=== PATIENT | female | born 1960 | race Caucasian/White ===

== ENCOUNTER 2019-07-03 09:40 | Day surgery (SDC) | payer BC ==
[2019-07-01 14:33] LABS: Urine Bacteria NONE SEEN /hpf (None Seen); Urine Blood Negative /uL (Negative); Urine Mucus FEW (None Seen); Urine Specific Gravity 1.014 (1.001-1.035); Urine WBC 31 /hpf (0 - 5)
[2019-07-01 15:15] LABS: Basophils # (auto) 0 uL; Basophils % (auto) 0.6 % (0.0-2.0); Eosinophils # (auto) 0 uL; Eosinophils % (auto) 1.2 % (0.0-7.0); Hematocrit 42.5 % (36.0-46.0); Hemoglobin 13.8 g/dL (12.2-16.2); Lymphocytes # (auto) 0.5 uL; Lymphocytes % (auto) 14.6 % (10.0-50.0); Mean Corpuscular Hemoglobin 28.7 pg (28.0-32.0); Mean Corpuscular Hgb Conc. 32.5 g/dL (32.0-36.0); Mean Corpuscular Volume 88.3 fL (80.0-100.0); Monocytes # (auto) 0.2 uL; Monocytes % (auto) 4.7 % (0.0-12.0); Neutrophils # (auto) 2.8 uL; Neutrophils % (auto) 78.9 % (37.0-80.0); Nucleated Red Blood Cells % 0.1 %; Platelet Count (auto) 119 10^3/uL (140-450); Red Blood Cells 4.81 10^6/uL (4.0-5.20); Red Cell Distribution Width 14.4 % (11.8-14.3); White Blood Cell 3.5 10^3/uL (4.4-10.8)
[2019-07-01 15:30] LABS: Albumin 3.8 g/dL (3.4-5.0); BUN/Creatinine Ratio 14.7; Calcium 9.1 mg/dL (8.5-10.1); Potassium 3.6 mmol/L (3.5-5.1)
[2019-07-01 15:31] LABS: Bilirubin, Total 0.4 mg/dL (0.2-1.0); Total Protein 7.9 g/dL (6.4-8.2)
[2019-07-01 15:34] LABS: INR 1.01 (0.9-1.15); Partial Thromboplastin Time 27.2 sec (23.64-32.05)
[~2019-07-03] VITALS: Ht 165.1 cm; Wt 99.8 kg
[2019-07-03] MEDS ORDERED: fentaNYL CITRATE 100 MCG/2 ML VL ONE (12:07)
[2019-07-03] MEDS ORDERED: MEPERIDINE HCL (25 MG/ML) 1ML VIAL ONE (12:07)
[2019-07-03] MEDS ORDERED: MIDAZOLAM HCL 1MG/1ML-2 ML VIAL ONE (12:07)
[2019-07-03] MEDS ORDERED: ceFAZolin 1GM/50ML 50 ML IV ONE (12:08)
[2019-07-03] MEDS ORDERED: LIDOCAINE 1% HCL (LOCAL ANESTH.) INJ 20ML MDV ONE (12:40)
[2019-07-03] MEDS ORDERED: PROPOFOL 10 MG/ML 20 ML IV ONE (13:18)
[2019-07-03] MEDS ORDERED: SUCCINYLCHOLINE CHLORIDE 20 MG/ML 10ML VIAL IV ONE (13:18)
[2019-07-03] MEDS ORDERED: METOCLOPRAMIDE HCL 5MG/ml INJ 2ml VIAL IV ONE (13:18)
[2019-07-03] MEDS ORDERED: DexAMETHasone SOD PHOS 10MG/1ML VIAL INJ ONE (13:46)
[2019-07-03] MEDS ORDERED: ONDANSETRON HCL 4 MG/2 ML VIAL ONE (14:05)
[2019-07-03] MEDS ORDERED: ACETAMINOPHEN/CODEINE#3 (300/30mg) TAB PO PRN (15:00)
[2019-07-03] MEDS ORDERED: KETOROLAC TROMETH 30 MG/ML 1ML VIAL ONE (15:25)
[2019-07-03] MEDS ORDERED: KETOROLAC TROMETH 15 mg/ml 1ML VL IV ONE (15:30)
[2019-07-03 15:42] VITALS: BP 142/87
[2019-08-12] MEDS ORDERED: NAP500T PO (10:08)
[2019-08-12] MEDS ORDERED: ERGO1CAP23 PO (10:08)
== END 2019-07-03 15:55 | disposition home or self-care (01) ==
LOC: SUR 09:40
PROVIDERS: ATTEND Surgery
DX: C50.611 Malignant neoplasm of axillary tail of right female breast (principal); E66.01 Morbid (severe) obesity due to excess calories; F17.210 Nicotine dependence, cigarettes, uncomplicated; Z68.36 Body mass index [BMI] 36.0-36.9, adult; Z17.0 Estrogen receptor positive status [ER+]; Z98.890 Other specified postprocedural states; Z90.89 Acquired absence of other organs; Z98.84 Bariatric surgery status
CPT/HCPCS: 19301; 36415; 38525; 80053; 81001; 85025; 85610; 85730; 88305; 88307; 88342; 88367; J0330; J0690; J1100; J1885; J2001; J2175; J2250; J2405; J2704; J2765; J3010

== ENCOUNTER → 2019-07-03 | Outpatient (CLI) | payer BC, OTHER ==
[~2019-07-03] VITALS: Ht 30.5 cm; Wt 0.5 kg
[~2019-07-03] MED LIST: HYDROmorphone HCL 2 MG/ML VL IV PRN; LABETALOL HCL 5 MG/ML 4ML SYRINGE IV PRN; MIDAZOLAM HCL 1MG/1ML-2 ML VIAL IV PRN; MORPHINE SULFATE 4 MG/ML SYR/VIAL IV PRN; ONDANSETRON HCL 4 MG/2 ML VIAL IV PRN; ePHEDrine SULFATE 50 MG/ML AMP IV PRN
== END | disposition home or self-care (01) ==
LOC: XY 09:59
PROVIDERS: ATTEND Surgery
DX: C50.911 Malignant neoplasm of unspecified site of right female breast (principal)
CPT/HCPCS: 78195; A9541; J2250; J3490

== ENCOUNTER 2019-08-14 08:24 | Day surgery (SDC) | payer BC ==
[2019-08-12 09:57] LABS: Basophils # (auto) 0 10 ^3/uL (0-0.2); Basophils % (auto) 0.5 % (0.0-2.0); Eosinophils # (auto) 0.1 10 ^3/uL (0-0.8); Eosinophils % (auto) 3.8 % (0.0-7.0); Hemoglobin 14.2 g/dL (12.2-16.2); Lymphocytes % (auto) 26.2 % (10.0-50.0); Mean Corpuscular Hemoglobin 28.7 pg (28.0-32.0); Mean Corpuscular Hgb Conc. 32.3 g/dL (32.0-36.0); Mean Corpuscular Volume 88.8 fL (80.0-100.0); Monocytes # (auto) 0.2 10 ^3/uL (0-1.3); Monocytes % (auto) 6.3 % (0.0-12.0); Neutrophils # (auto) 2.3 10 ^3/uL (1.6-8.6); Neutrophils % (auto) 63.2 % (37.0-80.0); Nucleated Red Blood Cells % 0.1 %; Platelet Count (auto) 131 10^3/uL (140-450); Red Blood Cells 4.96 10^6/uL (4.0-5.20); Red Cell Distribution Width 15.2 % (11.8-14.3); White Blood Cell 3.7 10^3/uL (4.4-10.8)
[2019-08-12 10:12] LABS: Urine Bacteria FEW /hpf (None Seen); Urine Blood Negative /uL (Negative); Urine Mucus FEW (None Seen); Urine WBC 11 /hpf (0 - 5)
[2019-08-12 10:24] LABS: Calcium 9.1 mg/dL (8.5-10.1); Potassium 3.8 mmol/L (3.5-5.1)
[2019-08-12 10:26] LABS: Partial Thromboplastin Time 26.8 sec (23.64-32.05)
[2019-08-12 10:31] LABS: Albumin 3.8 g/dL (3.4-5.0); BUN/Creatinine Ratio 14.3; Bilirubin, Total 0.4 mg/dL (0.2-1.0); Total Protein 7.9 g/dL (6.4-8.2)
[~2019-08-14] VITALS: Ht 165.1 cm; Wt 99.8 kg
[~2019-08-14 08:24] MED LIST changes: +ERGO1CAP23 PO; -HYDROmorphone HCL 2 MG/ML VL IV PRN; -LABETALOL HCL 5 MG/ML 4ML SYRINGE IV PRN; -MIDAZOLAM HCL 1MG/1ML-2 ML VIAL IV PRN; -MORPHINE SULFATE 4 MG/ML SYR/VIAL IV PRN; +NAP500T PO; -ONDANSETRON HCL 4 MG/2 ML VIAL IV PRN; -ePHEDrine SULFATE 50 MG/ML AMP IV PRN
[2019-08-14] MEDS ORDERED: ceFAZolin 1GM/50ML 50 ML IV ONE (08:58)
[2019-08-14] MEDS ORDERED: PROPOFOL 10 MG/ML 20 ML IV ONE (10:47)
[2019-08-14] MEDS ORDERED: ROCURONIUM 10MG/ML 10ML VIAL IV ONE (10:47)
[2019-08-14] MEDS ORDERED: MIDAZOLAM HCL 1MG/1ML-2 ML VIAL ONE (10:47)
[2019-08-14] MEDS ORDERED: ONDANSETRON HCL 4 MG/2 ML VIAL ONE (10:47)
[2019-08-14] MEDS ORDERED: SODIUM CHLORIDE LOCK 10 ML ONE (10:47)
[2019-08-14] MEDS ORDERED: MEPERIDINE HCL (25 MG/ML) 1ML VIAL ONE ×2 (10:47→14:35)
[2019-08-14] MEDS ORDERED: fentaNYL CITRATE 100 MCG/2 ML VL ONE ×2 (10:47→11:02)
[2019-08-14] MEDS ORDERED: fentaNYL CITRATE 100 MCG/2 ML VL IV PRN (14:00)
[2019-08-14] MEDS ORDERED: ONDANSETRON HCL 4 MG/2 ML VIAL IV PRN (14:00)
[2019-08-14] MEDS ORDERED: MORPHINE SULFATE 4 MG/ML SYR/VIAL IV PRN (14:00)
[2019-08-14] MEDS ORDERED: HYDROmorphone HCL 2 MG/ML VL IV PRN (14:00)
[2019-08-14] MEDS ORDERED: POVIDONE IODINE 10 % TOPICAL OINT 30GM TOP ONE (14:14)
[2019-08-14] MEDS ORDERED: KETOROLAC TROMETH 30 MG/ML 1ML VIAL IV ONE (15:20)
[2019-08-14] MEDS ORDERED: KETOROLAC TROMETH 30 MG/ML 1ML VIAL ONE (15:28)
[2019-08-14 16:10] VITALS: BP 134/78
== END 2019-08-14 16:23 | disposition home or self-care (01) ==
LOC: SUR 08:24
PROVIDERS: ATTEND Surgery
DX: C50.911 Malignant neoplasm of unspecified site of right female breast (principal); E66.3 Overweight; Z68.37 Body mass index [BMI] 37.0-37.9, adult; Z79.899 Other long term (current) drug therapy
CPT/HCPCS: 19301; 19307; 36415; 80053; 81001; 85025; 85610; 85730; 88309; 88342; J0690; J1885; J2175; J2250; J2405; J2704; J3010